=== PATIENT | female | born 1975 | race Caucasian/White ===

== ENCOUNTER 2022-11-14 03:52 | Emergency (ER) | payer SELFPAY ==
[~2022-11-14] VITALS: Ht 157.5 cm; Wt 79.0 kg
[2022-11-14 03:55] VITALS: BP 126/76; RESP 16; TEMP 98; O2SAT 99
[2022-11-14 03:56] VITALS: PULSE 65
== END 2022-11-14 06:36 | disposition left against medical advice (07) ==
LOC: ER 03:52
DX: Z53.21 Procedure and treatment not carried out due to patient leaving prior to being seen by health care provider (principal)
CPT/HCPCS: 99281